=== PATIENT | male | born 1950 | race Caucasian/White ===

== ENCOUNTER 2021-07-10 11:10 | Emergency (ER) | payer MEDICARE ==
--- NOTE | 2021-07-10 11:26 | EDM.PDOC ---
ED HPI GENERAL MEDICAL PROBLEM - General Chief Complaint: Respiratory Problem Stated Complaint: WEAKNESS Time Seen by Provider: 07/10/21 11:25 Source of Information: Reports: Patient, Family History Limitations: Reports: No Limitations - History of Present Illness INITIAL COMMENTS - FREE TEXT/NARRATIVE: Yasmani, 71-year-old male, presents accompanied by his with symptoms of COVID-19. States symptoms started 7 or 8 days ago and have been gradually worsening to where his noticed breathing issues last night. She was tested and diagnosed COVID-19 positive on Monday the and received monoclonal antibody infusion on Monday the . She states she is feeling somewhat better. He is not had any active healthcare in the past 20 years with no pertinent medical history obtainable. Former smoker with daily alcohol use. He has experienced fever, chills, shortness of breath, general malaise, and weakness with some associated cough. Denies any change in bowel or bladder. Has had decreased intake and has been sleeping quite a bit according to his . 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 His states she noticed worsening respiratory concerns as of last night. He is not vaccinated. No previous paperwork for advanced directive or living well. Yasmani does not provide an answer when questioned at the time of history taking, but his states at this time would be a full code. Onset: Gradual Onset Date: 07/02/21 Duration: Day(s): Location: Reports: Chest Quality: Reports: Other Severity: Severe Improves with: Reports: Other (oxygen) Worsens with: Reports: Movement Context: Reports: Sick Contact Associated Symptoms: Reports: Cough, Fever/Chills, Loss of Appetite, Malaise, Shortness of Breath, Weakness - Related Data Allergies Allergy/AdvReac Type Severity Reaction Status Date / Time No Known Drug Allergies Allergy Cannot Verified 07/10/21 12:01 Remember Home Meds: Home Meds . [No Known Home Meds] 07/10/21 [History] Past Medical History - Past Health History Medical/Surgical History: Denies Medical/Surgical History Social & Family History - Family History Family Medical History: No Pertinent Family History - Tobacco Use Tobacco Use Status *Q: Former Tobacco User Tobacco Use Within Last Twelve Months: No - Alcohol Use Alcohol Use History: Yes Days Per Week of Alcohol Use: 7 Days Per Week of Alcohol Use Comment: 7 Alcohol Use in Last Twelve Months: Yes Alcohol Use Frequency: Daily - Living Situation & Occupation Living situation: Reports: , with Spouse ED ROS GENERAL - Review of Systems Review Of Systems: Comprehensive ROS is negative, except as noted in HPI. ED EXAM, GENERAL - Physical Exam Exam: See Below Free Text/Narrative:: Alert, oriented, in respiratory distress. He is somewhat ashen in his appearance with mottled appearing chest and extremities. Cool to touch with Delayed capp refill. HEENT is negative discharge or deformity. There is cerumen in the canals with no evidence of infection. PERRLA no icterus no injection. [place] moist mucous membranes Neck is soft supple no lymphadenopathy, no JVD nor rigidity are appreciated. Thorax is diminished throughout with scattered rhonchi, no wheezes nor crackles are noted. Resp rate initially 55 to 60 with saturations of mid 80's on arrival. Cardiac is tachycardic 120's, S1 is 2 I do not appreciate murmur. Abdomen is soft bowel sounds are present no tenderness is noted, no flank tenderness. Motion of the extremities is intact with radial pulse being somewhat weak but correlates with apical heart rate. Poor venous access with hand vein obtained. #1 Interpretation EKG Date: 07/10/21 Time: 11:54 Rhythm: Other (Sinus tachycardia) Rate (Beats/Min): 108 [place]: Normal P-Wave: Present QRS: Normal ST-T: Depressed (inferiorleads) QT: Normal Comparison: NA - No Prior EKG Course - Vital Signs Last Recorded V/S: Last Vital Signs Temp 102.4 F H 07/10/21 12:54 Pulse 113 H 07/10/21 11:45 Resp 32 H 07/10/21 11:45 BP 146/81 H 07/10/21 11:45 Pulse Ox 85 L 07/10/21 11:45 - Orders/Labs/Meds Orders: Active Orders 24 hr Category Date Time Status Peripheral IV Care [RC] . DIRECTED Care 07/10/21 11:27 Active CTA Chest W Contrast [Ang Chest] [CT] Stat Exams 07/10/21 12:47 Ordered CULTURE BLOOD [BC] Stat Lab 07/10/21 12:49 Ordered CULTURE BLOOD [BC] Stat Lab 07/10/21 12:49 Ordered REFLEX LACTIC ACID YES OR NO [CHEM] Routine Lab 07/10/21 11:56 Received Sodium Chloride 0.9% [Saline Flush] Med 07/10/21 11:27 Active 10 ml FLUSH Q8HR PRN Blood Culture x2 Reflex Set [OM.PC] Stat Oth 07/10/21 12:49 Ordered Peripheral IV Insertion Adult [OM.PC] Stat Oth 07/10/21 11:27 Ordered EKG 12 Lead [EK] Stat Ther 07/10/21 11:27 Ordered Medication Orders Sodium Chloride (Sodium Chloride 0.9% 10 Ml Syringe) 10 ml FLUSH Q8HR PRN PRN Reason: keep vein open Labs: Laboratory Tests 07/10/21 07/10/21 07/10/21 Range/Units 11:30 11:30 11:30 WBC 9.65 (5.00-10.00) 10^3/uL RBC 5.85 (4.50-6.00) 10^6/uL Hgb 18.1 H (13.0-17.0) g/dL Hct 53.4 H (40.0-52.0) % MCV 91.3 (82.0-92.0) fL MCH 30.9 (27.0-31.0) pg MCHC 33.9 (32.0-36.0) g/dL RDW 12.2 (11.5-14.5) % Plt Count 277 (150-400) 10^3/uL MPV 11.3 H (7.4-10.4) fL Immature Gran % (Auto) 0.2 (0.0-5.0) % Neut % (Auto) 85.2 H (50.0-70.0) % Lymph % (Auto) 10.4 L (20.0-40.0) % [place] % (Auto) 4.1 (2.0-8.0) % Eos % (Auto) 0.0 L (1.0-3.0) % Baso % (Auto) 0.1 (0.0-1.0) % Neut # (Auto) 8.22 H (2.50-7.00) 10^3/uL Lymph # (Auto) 1.00 (1.00-4.00) 10^3/uL [place] # (Auto) 0.40 (0.10-0.80) 10^3/uL Eos # (Auto) 0.00 L (0.10-0.30) 10^3/uL Baso # (Auto) 0.01 (0.00-0.10) 10^3/uL Immature Gran # (Auto) 0.02 (0.00-0.50) 10^3/uL D-Dimer, Quantitative 2050 H (<400) ng/mL Sodium 140 (136-145) mmol/L Potassium 3.5 (3.5-5.1) mmol/L Chloride 100 (98-107) mmol/L Carbon Dioxide 25.8 (21.0-32.0) mmol/L Anion Gap 17.7 H (5-15) mmol/L BUN 28 H (7-18) mg/dL Creatinine 1.30 H (0.51-1.17) mg/dL Est Cr Clr Drug Dosing TNP Estimated GFR (MDRD) 55 mL/min Glucose 123 (70-140) mg/dL Lactic Acid (0.4-2.0) mmol/L Calcium 8.8 (8.7-10.3) mg/dL Total Bilirubin 0.6 (0.2-1.0) mg/dL AST 77 H (15-37) U/L ALT 93 H (14-63) U/L Alkaline Phosphatase 70 (46-116) U/L Troponin I High Sens 11.700 (0-76.000) pg/mL C-Reactive Protein 16.7 H (0.0-0.9) mg/dL Total Protein 8.8 H (6.4-8.2) g/dL Albumin 3.37 L (3.40-5.00) g/dL Influenza Type A RNA (NEGATIVE) RSV RNA (INAAT) (NEGATIVE) Influenza Type B RNA (NEGATIVE) SARS-CoV-2 RNA (SHELDON) (NEGATIVE) 07/10/21 07/10/21 Range/Units 11:30 11:30 WBC (5.00-10.00) 10^3/uL RBC (4.50-6.00) 10^6/uL Hgb (13.0-17.0) g/dL Hct (40.0-52.0) % MCV (82.0-92.0) fL MCH (27.0-31.0) pg MCHC (32.0-36.0) g/dL RDW (11.5-14.5) % Plt Count (150-400) 10^3/uL MPV (7.4-10.4) fL Immature Gran % (Auto) (0.0-5.0) % Neut % (Auto) (50.0-70.0) % Lymph % (Auto) (20.0-40.0) % [place] % (Auto) (2.0-8.0) % Eos % (Auto) (1.0-3.0) % Baso % (Auto) (0.0-1.0) % Neut # (Auto) (2.50-7.00) 10^3/uL Lymph # (Auto) (1.00-4.00) 10^3/uL [place] # (Auto) (0.10-0.80) 10^3/uL Eos # (Auto) (0.10-0.30) 10^3/uL Baso # (Auto) (0.00-0.10) 10^3/uL Immature Gran # (Auto) (0.00-0.50) 10^3/uL D-Dimer, Quantitative (<400) ng/mL Sodium (136-145) mmol/L Potassium (3.5-5.1) mmol/L Chloride (98-107) mmol/L Carbon Dioxide (21.0-32.0) mmol/L Anion Gap (5-15) mmol/L BUN (7-18) mg/dL Creatinine (0.51-1.17) mg/dL Est Cr Clr Drug Dosing Estimated GFR (MDRD) mL/min Glucose (70-140) mg/dL Lactic Acid 3.3 H (0.4-2.0) mmol/L Calcium (8.7-10.3) mg/dL Total Bilirubin (0.2-1.0) mg/dL AST (15-37) U/L ALT (14-63) U/L Alkaline Phosphatase (46-116) U/L Troponin I High Sens (0-76.000) pg/mL C-Reactive Protein (0.0-0.9) mg/dL Total Protein (6.4-8.2) g/dL Albumin (3.40-5.00) g/dL Influenza Type A RNA Negative (NEGATIVE) RSV RNA (INAAT) Negative (NEGATIVE) Influenza Type B RNA Negative (NEGATIVE) SARS-CoV-2 RNA (SHELDON) Positive H (NEGATIVE) Meds: Medications Generic Name Dose Route Start Last Admin Trade Name Freq PRN Reason Stop Dose Admin Sodium Chloride 10 ml 07/10/21 11:27 Sodium Chloride 0.9% 10 Ml Syringe FLUSH Q8HR PRN keep vein open Discontinued Medications Generic Name Dose Route Start Last Admin Trade Name Freq PRN Reason Stop Dose Admin Acetaminophen 1,000 mg 07/10/21 12:50 07/10/21 12:54 Acetaminophen 500 Mg Tab PO 07/10/21 12:51 1,000 mg ONETIME ONE Administration Sodium Chloride 1,000 mls @ 999 mls/hr 07/10/21 11:31 07/10/21 11:50 Normal Saline IV 07/10/21 12:31 999 mls/hr .BOLUS ONE Administration Sodium Chloride Confirm 07/10/21 11:32 07/10/21 12:03 Normal Saline Administered 07/10/21 11:33 Not Given Dose 1,000 mls @ as directed .ROUTE .[facility] ONE - Re-Assessments/Exams Free Text/Narrative Re-Assessment/Exam: 07/10/21 15:15 [place] contacted first at [place] 1324 receiving in no availability at 1339. [facility] contacted at [phone] and received no beds available. [facility] contacted at [phone] with no availability. [facility] contact at 1349 and was able to get transportation arranged at [address] [facility]. Free Text/Narrative Re-Assessment/Exam: 07/10/21 15:22 2 Liters of Normal saline infused at time of transfer. Lock and maintenance lines maintained. Departure - Departure Time of Disposition: 15:19 Disposition: DC/Tfer to [facility] 02 Clinical Impression: Elevated C-reactive protein (CRP), Tachypnea, Tachycardia, Elevated liver enzymes, Elevated d-dimer, Acute renal failure (ARF), Pneumonia due to COVID-19 virus, COVID-19 determined by clinical diagnostic criteria - Discharge Information *PRESCRIPTION DRUG MONITORING PROGRAM REVIEWED*: Not Applicable *COPY OF PRESCRIPTION DRUG MONITORING REPORT IN PATIENT GERARDO: Not Applicable Forms: ED Department Discharge Additional Instructions: Transfer [facility] [place] [address] Sepsis Event Note (ED) - Focused Exam Vital Signs: Vital Signs Temp Temp Pulse Resp BP Pulse Ox Pulse Ox 07/10/21 12:54 102.4 F H 07/10/21 12:42 102.4 F H 07/10/21 11:45 98.2 F 113 H 32 H 146/81 H 85 L 07/10/21 11:25 90 L 07/10/21 11:15 Pulse Ox 07/10/21 12:54 07/10/21 12:42 07/10/21 11:45 07/10/21 11:25 07/10/21 11:15 88 L ED Communication - ED Communication Date/Time Date: 07/10/21 Time Called: 14:22 - Discussed Case With (1) Discussed Case With (1): Admitting Provider Person/s Notified (1): Ky Phelps - Problem List & Annotations (1) COVID-19 determined by clinical diagnostic criteria SNOMED Code(s): 310689515, 872201129 Code(s): U07.1 - COVID-19 Status: Acute Priority: High Current Visit: Yes (2) Pneumonia due to COVID-19 virus SNOMED Code(s): 977454470921808459 Code(s): U07.1 - COVID-19; J12.82 - PNEUMONIA DUE TO CORONAVIRUS DISEASE 2019 Status: Acute Priority: High Current Visit: Yes (3) Acute renal failure (ARF) SNOMED Code(s): 10644815 Code(s): N17.9 - ACUTE KIDNEY FAILURE, UNSPECIFIED Status: Acute Priority: High Current Visit: Yes Qualifiers: Acute renal failure type: unspecified Qualified Code(s): N17.9 - Acute kidney failure, unspecified (4) Elevated liver enzymes SNOMED Code(s): 155358894 Code(s): R74.8 - ABNORMAL LEVELS OF OTHER SERUM ENZYMES Status: Acute Priority: High Current Visit: Yes (5) Elevated d-dimer SNOMED Code(s): 647614927 Code(s): R79.89 - OTHER SPECIFIED ABNORMAL FINDINGS OF BLOOD CHEMISTRY Status: Acute Priority: High Current Visit: Yes (6) Elevated C-reactive protein (CRP) SNOMED Code(s): 812862362871392 Code(s): R79.82 - ELEVATED C-REACTIVE PROTEIN (CRP) Status: Acute Priority: High Current Visit: Yes (7) Tachypnea SNOMED Code(s): 374428868 Code(s): R06.82 - TACHYPNEA, NOT ELSEWHERE CLASSIFIED Status: Acute Priority: High Current Visit: Yes (8) Tachycardia SNOMED Code(s): 1954930 Code(s): R00.0 - TACHYCARDIA, UNSPECIFIED Status: Acute Priority: High Current Visit: Yes - Problem List Review Problem List Initiated/Reviewed/Updated: Yes - My Orders Last 24 Hours: My Active Orders 07/10/21 11:27 Peripheral IV Care [RC] . DIRECTED Sodium Chloride 0.9% [Saline Flush] 10 ml FLUSH Q8HR PRN Peripheral IV Insertion Adult [OM.PC] Stat EKG 12 Lead [EK] Stat 07/10/21 11:56 REFLEX LACTIC ACID YES OR NO [CHEM] Routine 07/10/21 12:47 CTA Chest W Contrast [Ang Chest] [CT] Stat 07/10/21 12:49 CULTURE BLOOD [BC] Stat CULTURE BLOOD [BC] Stat Blood Culture x2 Reflex Set [OM.PC] Stat - Assessment/Plan Last 24 Hours: My Active Orders 07/10/21 11:27 Peripheral IV Care [RC] . DIRECTED Sodium Chloride 0.9% [Saline Flush] 10 ml FLUSH Q8HR PRN Peripheral IV Insertion Adult [OM.PC] Stat EKG 12 Lead [EK] Stat 07/10/21 11:56 REFLEX LACTIC ACID YES OR NO [CHEM] Routine 07/10/21 12:47 CTA Chest W Contrast [Ang Chest] [CT] Stat 07/10/21 12:49 CULTURE BLOOD [BC] Stat CULTURE BLOOD [BC] Stat Blood Culture x2 Reflex Set [OM.PC] Stat Plan: Transfer [facility] 448
[2021-07-10] MEDS ORDERED: Sodium Chloride 0.9% 10 ML Syringe FLUSH PRN (11:27)
[2021-07-10] MEDS: Sodium Chloride 0.9% 1,000 ML IV ONE ×2 (11:50→13:38)
[2021-07-10 11:59] LABS: ANION GAP 17.7 mmol/L (5-15); CHLORIDE,CL 100 mmol/L (98-107); SODIUM,NA 140 mmol/L (136-145)
[2021-07-10] MEDS: Sodium Chloride 0.9% 1,000 ML ONE (12:03)
--- NOTE | 2021-07-10 12:07 | CR ---
[id number] RAD/RAD Chest PA or AP 1V EXAM: RAD Chest PA or AP 1V INDICATION: SHORTNESS OF BREATH, COVID. COMPARISON: None. DISCUSSION/IMPRESSION: Scattered patchy areas of parenchymal opacification throughout both lungs. Findings are most consistent with pneumonia, including sequela of COVID 19. No pleural effusion or pneumothorax. Heart is normal in size. Marcos Barrientos MD 07/10/21 [id number] Thank you for allowing us to participate in the care of your patient.
[2021-07-10 12:26] LABS: CORONAVIRUS COVID-19 NAA POSITIVE (NEGATIVE); RESPIRATORY SYNCYTIAL VIR NAA NEGATIVE (NEGATIVE)
[2021-07-10] MEDS: Acetaminophen 500 MG Tab PO ONE (12:54)
[2021-07-10] MEDS: Sodium Chloride 0.9% 50 ML IV SCH (14:36)
[2021-07-10] MEDS: Iopamidol 755 Mg/ML 75 ML Bottle IVPUSH ONE (14:36)
--- NOTE | 2021-07-10 15:06 | CT ---
[id number] CT/CTA Chest EXAM: CTA Chest CLINICAL DATA: COVID +, ELEVATED D-DIMER 2,000. COMPARISON STUDY: Radiograph from today. FINDINGS: Lungs: Scattered patchy areas of geographic appearing groundglass parenchymal opacification in both lungs. Some of these are associated with interlobular septal thickening. Distribution and appearance is consistent with COVID pneumonia. Mediastinum: No mediastinal or hilar lymphadenopathy. Heart and great vessels: Heart is normal in size. No pericardial effusion. Thoracic aorta is normal in caliber. Pulmonary arteries are normal in caliber. Within limitations of patient motion artifact, no evidence of pulmonary embolus. Bones: No acute fracture or compression deformity. Spondylosis. Upper abdomen: Unremarkable. IMPRESSION: Extensive changes of COVID pneumonia throughout both lungs. No evidence of pulmonary embolus or other acute findings. Marcos Barrientos MD 07/10/21 9544 Thank you for allowing us to participate in the care of your patient.
== END 2021-07-10 15:53 ==
LOC: KA.ED 11:10
DX: U07.1 COVID-19 (principal); J12.82 Pneumonia due to coronavirus disease 2019; N17.9 Acute kidney failure, unspecified; R79.82 Elevated C-reactive protein (CRP); R00.0 Tachycardia, unspecified; R79.89 Other specified abnormal findings of blood chemistry; Z87.891 Personal history of nicotine dependence
CPT/HCPCS: 0241U; 36415; 71045; 71275; 80053; 83605; 84484; 85025; 85379; 86140; 87040; 93005; 93010; 99284; 99285-25; A9270-GY; J7030; Q9967

== ENCOUNTER 2024-12-25 21:38 | Inpatient (IN) | payer MEDICARE, OTHER ==
[2024-12-25] MEDS: Sodium Chloride 0.9% 10 ML Syringe FLUSH PRN (22:00)
[2024-12-25 22:05] LABS: BASOPHILS ABSOLUTE AUTO 0.03 10^3/uL (0.00-0.10); BASOPHILS PERCENT AUTO 0.2 % (0.0-1.0); EOSINOPHILS ABSOLUTE AUTO 0.09 10^3/uL (0.10-0.30); EOSINOPHILS PERCENT AUTO 0.6 % (1.0-3.0); HEMATOCRIT 43.2 % (40.0-52.0); HEMOGLOBIN 14.6 g/dL (13.0-17.0); IMMATURE GRAN ABSOLUTE AUTO 0.02 10^3/uL (0.00-0.04); IMMATURE GRAN PERCENT AUTO 0.1 % (0.0-0.4); LYMPHOCYTES ABSOLUTE AUTO 1.67 10^3/uL (1.00-4.00); LYMPHOCYTES PERCENT AUTO 11.4 % (20.0-40.0); MEAN CORPUSCULAR HEMOGLOBIN 30.4 pg (27.0-31.0); MEAN CORPUSCULAR HGB CONC 33.8 g/dL (32.0-36.0); MEAN CORPUSCULAR VOLUME 89.8 fL (82.0-92.0); MEAN PLATELET VOLUME 10.3 fL (7.4-10.4); MONOCYTES ABSOLUTE AUTO 0.71 10^3/uL (0.10-0.80); MONOCYTES PERCENT AUTO 4.9 % (2.0-8.0); NEUTROPHILS PERCENT AUTO 82.8 % (50.0-70.0); PLATELET COUNT,PLT 302 10^3/uL (150-400); RED BLOOD CELL COUNT 4.81 10^6/uL (4.50-6.00); RED CELL DISTRIBUTION WIDTH 12.6 % (11.5-14.5); WHITE BLOOD CELL COUNT,WBC 14.62 10^3/uL (5.00-10.00)
[2024-12-25] MEDS: Ondansetron 4 MG/2 ML SDV IVPUSH ONE (22:18)
[2024-12-25] MEDS: Lactated Ringers 1,000 ML IV ONE (22:20)
[2024-12-25 22:21] LABS: ALANINE AMINOTRANSFERASE,ALT 32 U/L (14-63); ALKALINE PHOSPHATASE 137 U/L (46-116); ANION GAP 16.5 mmol/L (5-15); ASPARTATE AMNIOTRANSFERASE,AST 24 U/L (15-37); BILIRUBIN TOTAL 0.4 mg/dL (0.2-1.0); BLOOD UREA NITROGEN,BUN 16 mg/dL (7-18); CALCIUM 9.5 mg/dL (8.7-10.3); CHLORIDE,CL 102 mmol/L (98-107); CREATININE 1.76 mg/dL (0.51-1.17); GLUCOSE RANDOM 115 mg/dL (70-140); POTASSIUM,K 3.5 mmol/L (3.5-5.1); PROTEIN TOTAL,TP 7.6 g/dL (6.4-8.2); SODIUM,NA 141 mmol/L (136-145)
[2024-12-25 22:22] LABS: ESTIMATED GFR 41 mL/min (>=60)
[2024-12-25] MEDS: Morphine 10 MG/ML Syringe IVPUSH ONE (22:23)
[2024-12-25 22:32] LABS: INR 0.9 (0.9-1.1); PROTHROMBIN TIME 9.9 SEC (9.1-12.0); PTT,PARTIAL THROMBOPLSTIN TIME 23.9 SEC (21.6-32.4)
[2024-12-25 22:39] LABS: APPEARANCE,URINE CLEAR (CLEAR); BILIRUBIN,URINE NEGATIVE (NEGATIVE); COLOR,URINE YELLOW (YELLOW); GLUCOSE,URINE NEGATIVE (NEGATIVE); KETONES,URINE NEGATIVE (NEGATIVE); LEUKOCYTE ESTERASE,URINE NEGATIVE (NEGATIVE); NITRITE,URINE NEGATIVE (NEGATIVE); OCCULT BLOOD,URINE TRACE-INTACT (NEGATIVE); PROTEIN,URINE NEGATIVE (NEGATIVE); UROBILINOGEN,URINE 0.2 E.U./dL (0.2-1.0)
[2024-12-25 22:51] LABS: BACTERIA,URINE NOT SEEN /HPF (NONE TO FEW); EPITHELIAL CELLS,URINE RARE /LPF; RBC,URINE NOT SEEN /HPF (0-5); WBC,URINE NOT SEEN /HPF (0-5)
[2024-12-25] MEDS: Morphine 2 MG/ML SYRINGE IVPUSH ONE (23:47)
[2024-12-26] MEDS: Labetalol 100 MG/20 ML MDV IVPUSH ONE (00:26)
[2024-12-26] MEDS ORDERED: Acetaminophen 325 MG Tab PO PRN (02:54)
[2024-12-26] MEDS ORDERED: Acetaminophen/oxyCODONE 325-5 MG Tab PO PRN (02:54)
[2024-12-26] MEDS ORDERED: Ondansetron 4 MG/2 ML SDV IV PRN (02:54)
[2024-12-26] MEDS ORDERED: Morphine 2 MG/ML SYRINGE IVPUSH PRN (02:54)
[2024-12-26] MEDS ORDERED: hydrALAZINE 10 MG Tab PO PRN (03:25)
[2024-12-26] MEDS: Sodium Chloride 0.9% 1,000 ML IV SCH (03:39)
[2024-12-26] MEDS ORDERED: Labetalol 100 MG/20 ML MDV IVPUSH PRN (06:23)
[2024-12-26 08:12] LABS: BASOPHILS ABSOLUTE AUTO 0.01 10^3/uL (0.00-0.10); BASOPHILS PERCENT AUTO 0.1 % (0.0-1.0); EOSINOPHILS ABSOLUTE AUTO 0.01 10^3/uL (0.10-0.30); EOSINOPHILS PERCENT AUTO 0.1 % (1.0-3.0); HEMATOCRIT 44.6 % (40.0-52.0); HEMOGLOBIN 14.8 g/dL (13.0-17.0); IMMATURE GRAN ABSOLUTE AUTO 0.02 10^3/uL (0.00-0.04); IMMATURE GRAN PERCENT AUTO 0.1 % (0.0-0.4); LYMPHOCYTES ABSOLUTE AUTO 1.29 10^3/uL (1.00-4.00); LYMPHOCYTES PERCENT AUTO 9.6 % (20.0-40.0); MEAN CORPUSCULAR HGB CONC 33.2 g/dL (32.0-36.0); MEAN CORPUSCULAR VOLUME 90.3 fL (82.0-92.0); MEAN PLATELET VOLUME 11.4 fL (7.4-10.4); MONOCYTES ABSOLUTE AUTO 0.89 10^3/uL (0.10-0.80); MONOCYTES PERCENT AUTO 6.6 % (2.0-8.0); NEUTROPHILS PERCENT AUTO 83.5 % (50.0-70.0); RED BLOOD CELL COUNT 4.94 10^6/uL (4.50-6.00); RED CELL DISTRIBUTION WIDTH 12.7 % (11.5-14.5); WHITE BLOOD CELL COUNT,WBC 13.42 10^3/uL (5.00-10.00)
[2024-12-26 08:18] LABS: PLATELET COUNT,PLT 175 10^3/uL (150-400)
[2024-12-26 08:26] LABS: ANION GAP 15.2 mmol/L (5-15); CARBON DIOXIDE,CO2 22.2 mmol/L (21.0-32.0); CREATININE 1.05 mg/dL (0.51-1.17); EST CRCL DRUG DOSING (CG) 61.52 mL/min; POTASSIUM,K 4.4 mmol/L (3.5-5.1)
[2024-12-26] MEDS: Sennosides/Docusate Sodium 50-8.6 MG Tab PO SCH (09:15)
[2024-12-26] MEDS: Enoxaparin 40 MG/0.4 ML Syringe SUBCUT SCH (09:15)
== END 2024-12-26 14:45 | disposition home or self-care (01) | DRG 552 ==
LOC: KA.ED 21:38 → KA.MS 12-26 00:50
PROVIDERS: ADMIT Family Medicine; ATTEND Family Medicine
DX: S12.091A Other nondisplaced fracture of first cervical vertebra, initial encounter for closed fracture (principal); N17.9 Acute kidney failure, unspecified; S12.100A Unspecified displaced fracture of second cervical vertebra, initial encounter for closed fracture; S12.601A Unspecified nondisplaced fracture of seventh cervical vertebra, initial encounter for closed fracture; Y93.89 Activity, other specified; Y92.89 Other specified places as the place of occurrence of the external cause; S12.110A Anterior displaced Type II dens fracture, initial encounter for closed fracture; D72.829 Elevated white blood cell count, unspecified; S12.000A Unspecified displaced fracture of first cervical vertebra, initial encounter for closed fracture; E86.0 Dehydration; S12.600A Unspecified displaced fracture of seventh cervical vertebra, initial encounter for closed fracture; I10 Essential (primary) hypertension; W55.22XA Struck by cow, initial encounter
CPT/HCPCS: 36415; 70450; 71045; 71250; 72125; 74176; 80048; 80053; 81001; 84484; 85025; 85610; 85730; 93010; 97116-GP; 97161-GP; 99236-GT; 99284; J1920; J2270; J2405; J7030; J7120; Q3014